=== PATIENT | male | born 1935 ===

== ENCOUNTER → 2017-06-05 | Outpatient (CLI) | payer OTHER ==
[~2017-06-05] MED LIST: ACET325 PO; ACYC200 PO; ACYC800 PO; ALBU90OI INH; ATOR10 PO; ATOR40TA PO; ATOR80 PO; AZIT250 PO; CALCAVITDA PO; CALCIUM + D3 E1 EACH PO; CHOL10002 PO; DIGO.25 PO; DOCU100 PO; DOFE500; DUCOSATE SODIUM PO; ERGO50000 PO; FORTICAL; GABA300 PO; HYDACE5 PO; LEVSOD112 PO; LEVSOD50 PO; MAGOXI400 PO; METO25 PO; METO25ER PO; METO50; METO50 PO; METO50ER PO; NITR.4TPA; OMEP20ER PO; ONDA8ODT MM; OXCA300 PO; OXYC10ER PO; PREG150 PO; PREG50 PO; RXTRAM50 PO; TRAM50 PO; WARF1 PO; WARF4; WARF5 PO; WARF6 PO; vit d
[2017-06-05 19:22] LABS: Hematocrit 44.5 % (37.0-53.0); Hemoglobin 14.7 g/dL (13.5-17.5); Mean Corpuscular Volume 97 fL (80-100); Mean Platelet Volume 11.5 fL (9.1-12.4); Platelet Count 174 K/mm3 (150-400); RDW Coefficient Variation 14.5 % (11.7-14.2); RDW Standard Deviation 52.1 fL (35.1-46.3); White Blood Cell Count 7.02 K/mm3 (4.00-11.30)
[2017-06-05 19:37] LABS: Alanine Aminotransfer (ALT/SGP 29 U/L (12-78); Albumin, Blood 4.1 g/dL (3.4-5.0); Albumin/Globulin Ratio 1.1 (0.8-1.8); Alk Phos 52 U/L (50-136); Anion Gap 8 mmol/L (6-16); Aspartate Aminotrans (AST/SGOT 25 U/L (12-37); Bilirubin, Total 1.4 mg/dL (0.1-1.0); Blood Urea Nitrogen 15 mg/dL (8-24); Bun/Creatinine Ratio 15.6 (12.0-20.0); CO2, Blood 28 mmol/L (21-32); Calcium, Blood 9.4 mg/dL (8.5-10.1); Chloride, Blood 105 mmol/L (98-108); Creatinine, Blood 0.96 mg/dL (0.60-1.20); Globulin, Blood 3.8 g/dL (2.2-4.0); Glomerular Filtration Rate >60 (60-); Glucose, Blood 97 mg/dL (70-99); Potassium, Blood 3.9 mmol/L (3.5-5.5); Sodium, Blood 141 mmol/L (136-145); Total Protein, Blood 7.9 g/dL (6.4-8.2)
== END ==
LOC: LAB 18:25
PROVIDERS: Nurse Practitioner
DX: R59.9 Enlarged lymph nodes, unspecified (principal)
CPT/HCPCS: 80053; 85027; 85651

== ENCOUNTER 2017-06-17 08:54 | Day surgery (SDC) | payer OTHER ==
[~2017-06-17] VITALS: Ht 175.3 cm; Wt 64.6 kg
== END 2017-06-17 12:41 | disposition home or self-care (01) ==
LOC: ORSCSDS 08:54
PROVIDERS: Internal Medicine Gastroenterology
PROC: 0DB38ZX Excision of Lower Esophagus, Via Natural or Artificial Opening Endoscopic, Diagnostic (ICD-10-PCS; principal; 2017-06-17 12:45)
PROC: 0DB18ZX Excision of Upper Esophagus, Via Natural or Artificial Opening Endoscopic, Diagnostic (ICD-10-PCS; principal; 2017-06-17 12:45)
PROC: 0D758ZZ Dilation of Esophagus, Via Natural or Artificial Opening Endoscopic (ICD-10-PCS; principal; 2017-06-17 12:45)
DX: R13.10 Dysphagia, unspecified (principal); R63.4 Abnormal weight loss; I48.91 Unspecified atrial fibrillation; Z87.891 Personal history of nicotine dependence; E78.5 Hyperlipidemia, unspecified; E03.9 Hypothyroidism, unspecified; K21.9 Gastro-esophageal reflux disease without esophagitis; Z79.01 Long term (current) use of anticoagulants; Z79.899 Other long term (current) drug therapy
CPT/HCPCS: 88305; J7120